=== PATIENT | female | born 1970 | race Caucasian/White ===

== ENCOUNTER → 2018-09-17 11:01 | Outpatient (CLI) | payer OTHER, SELFPAY ==
--- NOTE | 2018-09-17 | DI.MRI.S_ITS ---
PROCEDURE: MR SHOULDER RT W CON INDICATIONS: PAIN IN RIGHT SHOULDER TECHNIQUE: After the administration of 12 mL of dilute intra-articular Gadolinium contrast, oblique coronal T1 and T2 spin echo with fat saturation, oblique sagittal T1 spin echo with and without fat saturation, oblique sagittal T2 fast spin echo with fat saturation, axial T1 spin echo with fat saturation through the shoulder. COMPARISON: None. FINDINGS: Image quality: Excellent. Rotator cuff: There is low-grade bursal surface partial-thickness tear involving distal supraspinatus and infraspinatus at their insertions on the humeral head extending to musculotendinous junction. Subscapularis tendon is intact. No rotator cuff muscle atrophy on sagittal images. Bones and bursae: No bone marrow contusions or fractures. Mild to moderate acromioclavicular joint osteoarthritic changes are seen with marginal osteophyte formation compressing on musculotendinous junction of supraspinatus. 1.8 x 1.8 x 3.8 cm lobulated cystic structure with internal septation is noted along the posterior aspect of scapular and deep to the supraspinatus muscle and is adjacent to the posterior superior labrum. Capsule and soft tissues: There is suggestion of focal posterior superior labral tear at 10 to 12:00 position. Anterior labrum is intact. The glenohumeral ligaments appear intact. The long head of the biceps tendon demonstrates normal location and morphology. The rotator interval appears normal, without fibrosis. The coracohumeral ligament is of normal thickness. No intra-articular bodies. IMPRESSION: 1. Suggestion of posterior superior labral tear at 10 to 12:00 position. Possible septated para labral cyst adjacent to posterior superior labrum as described above. 2. Tendinosis and low-grade bursal surface partial-thickness tear involving distal supraspinatus and infraspinatus extending to musculotendinous junction. 3. Mild to moderate acromioclavicular joint osteoarthritis. Dictated by: Isaiah Juarez M.D. on 09/17/2018 at 13:28 Approved by: Isaiah Juarez M.D. on 09/17/2018 at 13:43
--- NOTE | 2018-09-17 | DI.RAD.S_ITS ---
PROCEDURE: FL SHOULDER INJECTION MR/CT RT INDICATIONS: PAIN IN RIGHT SHOULDER TECHNIQUE: A fluoroscopically guided right shoulder joint injection with gadolinium based contrast in preparation for an MR Arthrogram was performed by Dr. Hobson. The procedure was explained to the patient, including the alternatives, risks and benefits. Written informed consent was obtained. The patient was then placed in the supine position on the fluoroscopy table and the right upper extremity was externally rotated and secured in place. The shoulder was examined fluoroscopically and a site for needle placement chosen for entry into the glenohumeral joint along the upper-inner aspect of the humeral head, from an anterior approach. The right shoulder was then prepped and draped in the usual sterile fashion. The skin overlying this region and underlying soft tissues were anesthetized using 1% lidocaine. A 22-gauge spinal needle was then inserted under fluoroscopic observation into the glenohumeral joint. Additional Lidocaine was injected to anesthetize the periosteum of the humeral head. A small amount of Isovue contrast was injected to confirm proper placement within the joint space. Then, approximately 12 mL of a dilute solution of gadolinium based contrast (1:200) was injected into the glenohumeral joint under fluoroscopic observation. The needle was removed and hemostasis was obtained. A bandage was applied. The patient tolerated the procedure well, without immediate complications. The patient was then sent to MRI for further imaging. FINDINGS: Multiple fluoroscopically stored images of the right shoulder demonstrate the injected contrast to be contained within the glenohumeral joint without extension into the subacromial-subdeltoid bursa. IMPRESSION: Well tolerated fluoroscopically guided injection of the right glenohumeral joint with gadolinium based contrast in preparation for an MR arthrogram. Dictated by: Vince Hobson M.D. on 09/17/2018 at 13:02 Approved by: Vince Hobson M.D. on 09/17/2018 at 13:03
== END ==
PROVIDERS: PCP Physician Assistant; Visit Provider Physician Assistant
DX: M25.511 Pain in right shoulder (principal); M75.111 Incomplete rotator cuff tear or rupture of right shoulder, not specified as traumatic; M19.011 Primary osteoarthritis, right shoulder
CPT/HCPCS: 23350; 73222; 77002

== ENCOUNTER 2019-08-03 18:06 | Emergency (ER) | payer OTHER, SELFPAY ==
[2019-08-03 18:10] VITALS: BP 204/109; PULSE 86; RESP 14; TEMP 36.7; O2SAT 100; BMI 25.2
--- NOTE | 2019-08-03 18:18 | DI.RAD.S_ITS ---
PROCEDURE: XR HAND LT MIN 3V INDICATIONS: dog bite left thumb TECHNIQUE: 3 views of the hand(s) acquired. COMPARISON: None. FINDINGS: Bones: No fractures or dislocations. Carpal bones are normally aligned. No suspicious bony lesions. Soft tissues: No suspicious soft tissue calcifications. Subcutaneous defect as well as swelling at the base of the thumb. No radiopaque foreign body. IMPRESSION: No bony injury. No radiopaque soft tissue foreign body. Dictated by: Mimi Olmstead M.D. on 08/03/2019 at 18:43 Approved by: Mimi Olmstead M.D. on 08/03/2019 at 18:45
--- NOTE | 2019-08-03 18:48 | ED_ITS ---
HPI - Animal Bite General Chief Complaint: Animal Bite Stated Complaint: DOG BITE LEFT HAND Time Seen by Provider: 08/03/19 18:12 Source: patient Mode of arrival: Ambulatory Limitations: no limitations History of Present Illness HPI narrative: 49-year-old female nonsmoker with noncontributory medical history presents with her friend and a chief complaint of a dog bite on the dorsum of her left thumb. The dog is owned by her friend and has shots up-to-date and had been acting appropriate. It is unclear exactly what caused her to nip at the patient's hand but it is thought to have been a playful action. The patient's tetanus is not up-to-date and will be given today. Patient has minimal bleeding and painful but full range of motion of the thumb. She is otherwise well and free of complaint MD complaint: animal bite Onset (ago): hour(s) Animal: dog Description of animal: household pet Mechanism: bite Location - Extremities: Left: hand Pain description: sharp Context: playing with animal Associated symptoms: none Treatments prior to arrival: wound dressing(s) Related Data Patient tetanus UTD: No Previous Rx's Medication Instructions Recorded hydrocodone-acetaminophen [[place]] 1 - 2 tab PO Q6HP PRN #15 tab 11/19/16 doxycycline hyclate 100 mg PO BID #20 tab 08/03/19 metronidazole [Flagyl] 500 mg PO Q8H 7 Days #21 tab 08/03/19 Allergies Allergy/AdvReac Type Severity Reaction Status Date / Time amoxicillin [From AUGMENTIN] Allergy Unknown Verified 08/03/19 18:15 clavulanic acid Allergy Unknown Verified 08/03/19 18:15 [From AUGMENTIN] Review of Systems Constitutional Constitutional: Denies chills, Denies fatigue, Denies fever(s), Denies frequent falls, Denies lethargy and Denies weakness Eyes Eyes: Denies change in vision, Denies eye discharge, Denies irritation and Denies loss of vision ENT Ears, Nose, Mouth, and Throat: Denies change in voice, Denies dizziness, Denies neck pain, Denies sore throat and Denies throat swelling Cardiovascular Cardiovascular: Denies chest pain, Denies irregular heart rhythm, Denies lightheadedness, Denies palpitations, Denies dyspnea, Denies dyspnea on exertion and Denies orthopnea Respiratory Respiratory: Denies cough, Denies dyspnea, Denies dyspnea on exertion and Denies wheezing Gastrointestinal Gastrointestinal: Denies abdominal pain, Denies change in bowel habits, Denies diarrhea, Denies nausea and Denies vomiting Genitourinary Genitourinary: Denies hematuria, Denies flank pain, Denies urinary incontinence and Denies urinary urgency Musculoskeletal Musculoskeletal: Denies back pain, Denies muscle weakness, Denies neck pain, Denies numbness and Denies tingling Integumentary/Breasts Skin/Breast: Denies pruritus, Denies erythema, Denies rash and Reports wounds Neurologic Neurologic: Denies behavioral changes, Denies confusion, Denies dizziness, Denies frequent falls, Denies loss of vision, Denies numbness, Denies tingling and Denies weakness Psychiatric Psychiatric: Denies anxiety, Denies behavioral changes, Denies confusion, Denies depression, Denies homicidal ideation and Denies suicidal ideation Endocrine Endocrine: Denies fatigue, Denies flushing and Denies palpitations Hematologic/Lymphatic Hematologic/Lymphatic: Denies easy bruising Allergic/Immunologic Allergic/Immunologic: Denies urticaria, Denies throat swelling and Denies wheezing Patient History Social History Smoking Status: Unknown if ever smoked Smoking Status: Unknown if ever smoked alcohol intake frequency: holidays/special occasions only Substance Use Type: does not use Exam Narrative Exam Narrative: GEN: AOx3 and in mild distress EYES: Pupils are equal, round, and reactive to light and accommodation. Extraoccular muscles are intact bilaterally. There is no subconjunctival hemorrhage or exudate. CHEST: Lungs are clear to auscultation bilaterally and free of wheezes, rales, or rhonchi. Heart rate is regular rhythm, there are no murmurs, clicks, rubs, or gallops. There is no chest wall tenderness. ABD: Abdomen is soft and nontender. There is no guarding or rebound. Bowel sounds are normal in all 4 quadrants. There is no mass or organomegaly. EXT: Full but painful range of motion of left thumb. There is a 1.5 cm gaping laceration on dorsum of left thumb with minimal active bleeding. Able to visualize in a bloodless field and no involvement of bone or tendon noted. A 2nd superficial laceration on the volar surface of thumb also noted, again expl ored and no tendon or bone involvement noted SKIN: Warm, pink, and dry. No erythema or rash Initial Vital Signs Initial Vital Signs: Vital Signs Temperature 98.1 F 08/03/19 18:10 Pulse Rate 86 08/03/19 18:10 Respiratory Rate 14 08/03/19 18:10 Blood Pressure 204/109 H 08/03/19 18:10 Pulse Oximetry 100 08/03/19 18:10 Procedures Laceration Repair Laceration 1: Site: hand Side (If applicable): left Size (cm): 1.5 Description: flap and irregular Depth: simple, single layer Local Anesthetic: lidocaine 1% and with bicarb Amount of anesthesia used (mL): 4 Pre-repair: wound explored, irrigated extensively and deep structures intact Skin layer closed with: nylon Size (cm): 5-0 Number of sutures: 4 Technique: simple, interrupted Course Orders Ordered: ED Orders 08/03/19 18:18 XR hand LT min 3V Stat Discontinued Medications Diphtheria/Tetanus/Acell Pertussis (Adacel) 0.5 ml IM .ONCE ONE Stop: 08/03/19 18:49 Last Admin: 08/03/19 19:11 Dose: 0.5 ml Documented by: BRUCE Lidocaine/Sodium Bicarbonate (Buffered Lidocaine 10 Ml Syr) 10 ml INJ NOW ONE Stop: 08/03/19 19:14 Last Admin: 08/03/19 19:18 Dose: 10 ml Documented by: BRUCE Vital Signs Vital signs: Vital Signs - 8 hr 08/03/19 18:10 08/03/19 19:55 Temperature 98.1 F Pulse Rate 86 78 Respiratory Rate 14 16 Blood Pressure 204/109 H 161/83 H Pulse Oximetry 100 98 MDM - Animal Bite Imaging Data Extremity x-ray #1: Attestation: I personally reviewed and interpreted this imaging study as follows: My Impression: No Fx or FB Radiologist's Impression: [address] [address] XRay Report Signed Patient: Torie Tamayo LMR#: [id number] : 1970Acct:[id number] Age/Sex: 49 / FDate of Service: 08/03/19 Loc: ED Accession Number: [id number] Procedure: XR hand LT min 3V Ordering Provider: Franco Benson D.O. PROCEDURE: XR HAND LT MIN 3V INDICATIONS: dog bite left thumb TECHNIQUE: 3 views of the hand(s) acquired. COMPARISON: None. FINDINGS: Bones: No fractures or dislocations. Carpal bones are normally aligned. No suspicious bony lesions. Soft tissues: No suspicious soft tissue calcifications. Subcutaneous defect as well as swelling at the base of the thumb. No radiopaque foreign body. IMPRESSION: No bony injury. No radiopaque soft tissue foreign body. Dictated by: Mimi Olmstead M.D. on 08/03/2019 at 18:43 Approved by: Mimi Olmstead M.D. on 08/03/2019 at 18:45 Discharge Plan Departure Patient Disposition: Home Clinical Impression: Dog bite Qualifiers: Encounter type: initial encounter Qualified Code(s): W54.0XXA - Bitten by dog, initial encounter Discharge Date/Time: 08/03/19 20:04 Instructions: DI for Dog Bite Activity Restrictions/Additional Instructions: *You have been diagnosed with [dog bite requiring sutures] *What to do: *Take medications as directed *Follow up with your primary care provider in 2-3 days, call for an appointment. Let them know you were seen in the Emergency Department and that we ask that you be seen in follow up *Return to ER if you should have any new, worsening or concerning symptoms Please keep the wound clean and dry to the best of your ability. Please monitor for signs of infection such as redness to the skin or increasing pain. Have the sutures removed by your doctor in about 7 days. If you are unable to get into your doctor, we would be happy to remove the sutures in that same timeframe. Prescriptions: New doxycycline hyclate 100 mg tablet 100 mg PO BID Qty: 20 RF: 0 metronidazole [Flagyl] 500 mg tablet 500 mg PO Q8H 7 Days Qty: 21 RF: 0 No Action hydrocodone-acetaminophen [[place]] 5 MG/325 MG tablet 1 - 2 tab PO Q6HP PRNQty: 15 RF: 0 Referrals: Jose Alberto Barrett PA-C [Primary Care Provider] -
[2019-08-03] MEDS: TET,DIPH,PERTUSS(ACELL),VAC/PF 0.5 ML SYRINGE IM (19:11)
[2019-08-03] MEDS: LIDO 1%/SOD BICARB 8.4% (10ML) 10 ML SYRINGE INJ (19:18)
[2019-08-03 19:55] VITALS: BP 161/83; PULSE 78; RESP 16; O2SAT 98
== END 2019-08-03 20:04 | disposition home or self-care (01) ==
PROVIDERS: Emergency Provider Emergency Medicine; PCP Physician Assistant
DX: S61.052A Open bite of left thumb without damage to nail, initial encounter (principal); W54.0XXA Bitten by dog, initial encounter; Z23 Encounter for immunization
CPT/HCPCS: 12001; 73130; 90471; 99283; 99284; 90715

== ENCOUNTER → 2019-12-12 09:04 | Outpatient (CLI) | payer OTHER, SELFPAY ==
[2019-12-13 13:22] LABS: COVID19 Sendout Not Detected (Not Detect)
== END ==
PROVIDERS: PCP Physician Assistant; Visit Provider Nurse Practitioner
DX: Z11.59 Encounter for screening for other viral diseases (principal)
CPT/HCPCS: 87635

== ENCOUNTER 2019-12-15 08:55 | Day surgery (SDC) | payer OTHER, SELFPAY ==
--- NOTE | 2019-12-15 | PATH_ITS ---
[facility] Accession Number: [id number] . 01 Material submitted: . rectum - PROXIMAL RECTAL MASS . 01 Clinical history: . DX COLONOSCOPY . 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 Please see comment. MRV 12/17/2019 1137 Local . 02 Comment: As part of routine lead quality technician, Dr. Mahan also reviewed this case and agrees with the diagnosis. Dr. Wilburn gave preliminary results to Curt in Dr. Lama's office at 10:30 a.m. on 12/17/2019. Mismatch repair IHC will be performed and the results reported as an addendum. . 02 Electronically signed: . Nikky Wilburn MD, Pathologist NPI- [id number] . 01 Gross description: . Received in formalin, labeled proximal rectal mass, and consists of multiple casanova-pink fragments of soft tissue measuring 0.5 x 0.4 x 0.2 cm in aggregate. The specimen is entirely submitted in cassette A1. ([id number]) /[facility] 12/16/2019 1255 Local . 02 Pathologist provided ICD-10: C20 . 02 CPT . 358472 Performed at: 01 [facility] [address], [place], [place] [id number] MD Shahzad Calzada MD Phone: [phone] Performed at: 02 [facility] [address] [place], [place] [id number] MD Nikky Wilburn MD Phone: [phone]
[2019-12-15 09:19] VITALS: BP 129/82; PULSE 66; RESP 20; TEMP 36.1; O2SAT 99; BMI 26.4
--- NOTE | 2019-12-15 11:06 | P.HP_ITS ---
History of Present Illness History of Present Illness Chief complaint: DX COLONOSCOPY Patient History Family & Social History Social History: household members spouse Tobacco & Substance use: Smoking Status Never smoker alcohol intake never alcohol intake frequency holiday/special occasion Substance Use Type does not use Meds Home Medications and Allergies Home Medications Medication Instructions Recorded Confirmed Type gabapentin 300 mg PO DAILY 12/15/19 12/15/19 History hydrochlorothiazide 25 mg PO DAILY 12/15/19 12/15/19 History Allergies Allergy/AdvReac Type Severity Reaction Status Date / Time amoxicillin [From AUGMENTIN] Allergy Unknown Verified 12/15/19 09:18 clavulanic acid Allergy Unknown Verified 12/15/19 09:18 [From AUGMENTIN] lisinopril Allergy Verified 12/15/19 09:18 Review of Systems Review of Systems ROS: Yes All systems reviewed with the patient and are negative except as other boss documented Exam Vital Signs (past 8 hours): - 12/15/19 09:19 Temperature 97 F L Pulse Rate 66 Respiratory Rate 20 Blood Pressure 129/82 Pulse Oximetry 99 Oxygen Delivery Method Room Air Narrative Exam Narrative: Awake alert and oriented x3, no acute distress, lungs clear, heart regular rhythm, no edema Assessment & Plan Assessment & Plan narrative: Colonoscopy for screening purposes COVID-19 COVID-19 status: Negative
[2019-12-15] MEDS: fentaNYL 250 MCG/5 ML INJ IV (11:29)
[2019-12-15] MEDS: MIDAZOLAM 5 MG/5 ML VIAL IV (11:33)
--- NOTE | 2019-12-15 11:41 | PM.OP.ENDO ---
Operative Date/Time/Diagnoses Date of procedure: 12/15/19 Procedure & Clinicians Study performed: Colonoscopy with biopsy Moderate conscious sedation was administered by the endoscopy nurse and supervised by the endoscopist. The following parameters were monitored: Oxygen saturation, heart rate, blood pressure, and response to care. 9 mg midazolam and 150 mcg fentanyl given. Same procedure as scheduled: Yes Indications: Colon cancer screening. Last colonoscopy was over 20 years ago. Maternal grandparent history of colon cancer. History of constipation Procedure Notes Procedure in detail: Prior to the procedure, history and physical was performed, and patient medications and allergies were reviewed. Preprocedure nursing history and assessment was reviewed. Patient identification and proposed procedure were verified by the physician and nurse in the procedure room. The physical status of the patient was reassessed after the procedure. After informed consent was obtained including risks, benefits, and alternatives, the scope was passed under direct vision. Throughout the procedure, the patient's blood pressure, pulse, and oxygen saturations were monitored continuously. The colonoscope was introduced through the anus and advanced to the cecum as identified by the appendiceal orifice and ileocecal valve. The patient tolerated the procedure poorly due to discomfort. Bowel prep was deemed adequate to detect polyps greater than 5 mm. The perianal and digital rectal examinations were unremarkable aside from grade 2 internal hemorrhoids. A 3 cm (wide) x 5 cm (long) fungating mass was noted in the proximal rectum. This occupied 2/3 of the circumference of the lumen and was partially obstructing. The distal border of the mass was located 8 cm from the anal verge. Biopsies were taken A large amount of liquid and solid stool was noted throughout the distal colon. This could not be lavaged completely. Visualization was poor. Due to the patient's discomfort which was not responding to sedatives and poor bowel prep, the colonoscopy was aborted Impression: Large proximal rectal mass biopsied Internal hemorrhoids Poor bowel prep inpatient discomfort not responsive to sedatives Aborted colonoscopy Sedation minutes: 19 Complications: other (EBL minimal. No complications) Post-procedure Plan for aftercare: Repeat colonoscopy at the next available appointment. Arrange an extended bowel prep. Utilize monitored anesthesia care for sedation. Follow-up biopsy results Referral to a colorectal surgeon Patient has a contact number available for emergencies. The signs and symptoms of potential delayed complications were discussed with the patient. Return to normal activities tomorrow. Written discharge instructions were provided to the patient. Discharge home with escort
[2019-12-15 11:46] VITALS: BP 143/84; PULSE 72; RESP 17; TEMP 36.4; O2SAT 17
[2019-12-15 11:51] VITALS: BP 148/86; PULSE 72; RESP 13; TEMP 35.8; O2SAT 98
[2019-12-15 11:56] VITALS: BP 139/88; PULSE 75; RESP 15; TEMP 36; O2SAT 100
[2019-12-15 12:05] VITALS: BP 133/80; PULSE 78; RESP 20; TEMP 36.1; O2SAT 100
--- NOTE | 2019-12-15 12:23 | SUR.PHASEI ---
Phase 1 done by Em Adames RN, not Jia Reynoso RN
[2019-12-15 12:50] VITALS: BP 152/86; PULSE 75; RESP 16; TEMP 36.6; O2SAT 99
== END 2019-12-15 13:00 | disposition home or self-care (01) ==
PROVIDERS: Visit Provider Internal Medicine
PROC: 0DJD8ZZ Inspection of Lower Intestinal Tract, Via Natural or Artificial Opening Endoscopic (ICD-10-PCS; CPT 45378; principal; 2019-12-15 10:00)
DX: Z12.11 Encounter for screening for malignant neoplasm of colon (principal); K64.1 Second degree hemorrhoids; Z53.8 Procedure and treatment not carried out for other reasons; K91.840 Postprocedural hemorrhage of a digestive system organ or structure following a digestive system procedure; C20 Malignant neoplasm of rectum
CPT/HCPCS: 45380; 36415; 74177; 80053; 85025; 85610; 85730; 86850; 86900; 86901; 99284; J2250; J3010

== ENCOUNTER 2019-12-15 19:34 | Emergency (ER) | payer OTHER, SELFPAY ==
[2019-12-15 19:37] VITALS: BP 182/82; PULSE 80; RESP 20; TEMP 36.6; O2SAT 99
[2019-12-15 20:07] LABS: Add Manual Diff / Slide Review NO; Basophils Absolute Auto 0 /uL (0-100); Basophils Percent Auto 0.7 % (0-2); Eosinophils Absolute Auto 200 /uL (0-450); Eosinophils Percent Auto 3.9 % (2-4); Hematocrit 38.1 % (36-46); Lymphocytes Absolute Auto 2700 /uL (1100-4500); Lymphocytes Percent Auto 47.1 % (25-40); Mean Corpuscular HGB Conc 34.3 % (30-36); Mean Corpuscular Hemoglobin 29.7 PG (26-34); Mean Corpuscular Volume 86.6 fL (80-100); Monocytes Absolute Auto 400 /uL (0-900); Neutrophils Absolute Auto 2400 /uL (1500-7000); Neutrophils Percent Auto 41.3 % (50-75); Platelet Count 284 X10^3/uL (150-400); Red Blood Cell Count 4.39 X10^6/uL (4.0-5.2); White Blood Cell Count 5.7 X10^3/uL (4.5-11.0)
[2019-12-15 20:12] LABS: INR 0.9 (0.9-1.3); Prothrombin Time 10.7 SECONDS (10.1-12.7)
[2019-12-15 20:15] LABS: PTT Partial Thromboplastin Tim 33 SECONDS (26.4-36.2)
[2019-12-15 20:16] LABS: Alanine Aminotransferase 17 IU/L (<35); Albumin 3.9 g/dL (3.5-5.0); Albumin Globulin Ratio 1.2 (1.0-2.8); Alkaline Phosphatase 79 U/L (38-126); Aspartate Aminotransferase 28 IU/L (14-36); BUN Creatinine Ratio 11.3 (6-22); Bilirubin Total 0.6 mg/dL (0.2-1.3); Blood Urea Nitrogen 7 mg/dL (7-17); Calcium 8.5 mg/dL (8.4-10.2); Carbon Dioxide 27 mmol/L (22-32); Chloride 101 mmol/L (98-107); Estimated Glomerular Filt Rate > 60.0 mL/min (>60); Globulin 3.2 g/dL (1.7-4.1); Glucose 106 mg/dL (70-100); HEMOLYSIS < 15 (0-50); Potassium 3.2 mmol/L (3.4-5.1); Sodium 137 mmol/L (137-145); Total Protein 7.1 g/dL (6.3-8.2)
--- NOTE | 2019-12-15 20:20 | ED_ITS ---
HPI - General Adult General Chief complaint: Abdominal Pain Stated complaint: abd pains s/p colonoscopy earlier today Time Seen by Provider: 12/15/19 20:08 Source: patient Mode of arrival: Ambulatory Limitations: no limitations History of Present Illness HPI narrative: 49-year-old female who underwent a colonoscopy earlier today and was found to have a mass in the proximal rectum. A review of the note shows that there was difficulty with the procedure stating that there was quite a bit of liquid informed stool above level of the mass. A colonoscopy was aborted without being completed secondary to the discomfort of the patient. There was a biopsy taken of the mass. Patient was discharged home. Patient states that since being discharged home she has had rectal bleeding to include clots and bright red blood. Also has left-sided and suprapubic abdominal tenderness. No fevers. No vomiting. No urinary symptoms. Came into the emergency department because of the bleeding. Related Data Home Medications Medication Instructions Recorded Confirmed fluoxetine 10 mg PO DAILY 12/15/19 12/15/19 gabapentin 300 mg PO DAILY 12/15/19 12/15/19 hydrochlorothiazide 12.5 mg PO QAM 12/15/19 12/15/19 Allergies Allergy/AdvReac Type Severity Reaction Status Date / Time amoxicillin [From AUGMENTIN] Allergy Unknown Verified 12/15/19 09:18 clavulanic acid Allergy Unknown Verified 12/15/19 09:18 [From AUGMENTIN] lisinopril Allergy Verified 12/15/19 09:18 Review of Systems Constitutional Constitutional: Denies fever(s) Cardiovascular Cardiovascular: Denies chest pain and Denies dyspnea Respiratory Respiratory: Denies dyspnea Gastrointestinal Gastrointestinal: Reports abdominal pain, Denies melena, Denies nausea and Denies vomiting Genitourinary Genitourinary: Denies dysuria Genitourinary: Denies dysuria Integumentary/Breasts Skin/Breast: Denies lesions and Denies rash Neurologic Neurologic: Denies behavioral changes Psychiatric Psychiatric: Denies anxiety and Denies behavioral changes Hematologic/Lymphatic Hematologic/Lymphatic: Denies easy bleeding and Denies easy bruising Patient History Medical History Foot contusion (Inactive) Social History household members: spouse Smoking Status: Never smoker alcohol intake: never Smoking Status: Never smoker alcohol intake frequency: holidays/special occasions only Substance Use Type: does not use Exam Initial Vital Signs Initial Vital Signs: Vital Signs Temperature 97.9 F 12/15/19 19:37 Pulse Rate 80 12/15/19 19:37 Respiratory Rate 20 12/15/19 19:37 Blood Pressure 182/82 H 12/15/19 19:37 Pulse Oximetry 99 12/15/19 19:37 Const General: cooperative and comfortable Limitations: mental status not altered HENMO Head: normal to inspection and normocephalic Resp Effort & Inspection: normal respiratory effort Auscultation: clear to auscultation bilaterally Cardio Rate: regular rate Rhythm: regular rhythm GI Inspection: non-distended Palpation: soft and tender (Left lower quadrant) Skin Lesions: no lesions Rashes: no rashes Neuro General: patient alert and patient awake Cognition: normal cognition Speech: speech normal Extrem General: normal to inspection and capillary refill normal Psych Appearance: grossly normal and well kempt Course Orders Ordered: ED Orders 12/15/19 19:50 Complete Blood Count AUTO DIFF Stat Comprehensive Metabolic Panel Stat Partial Thromboplastin Time Stat Prothrombin Time INR Stat Type and Screen Stat 12/15/19 19:56 EKG-12 Lead Stat 12/15/19 20:21 CT abdomen pelvis w con Stat Discontinued Medications Sodium Chloride (Normal Saline 0.9%) 1,000 mls @ 1,000 mls/hr IV BOLUS ONE Stop: 12/15/19 21:19 Last Infusion: 12/15/19 21:52 Dose: 0 mls/hr Documented by: Admin: 12/15/19 20:55 Dose: 1,000 mls/hr Documented by: JHONATAN Vital Signs Vital signs: Vital Signs - 8 hr 12/15/19 21:00 12/15/19 21:53 Pulse Rate 68 77 Respiratory Rate 20 20 Blood Pressure 145/78 H 165/90 H Pulse Oximetry 99 99 Medical Decision Making Medical Records Medical records reviewed: Yes I reviewed the patient's medical records. Lab Data Lab results reviewed: Yes I reviewed the patient's lab results. Result diagrams: 12/15/19 19:50 12/15/19 19:50 Labs: Lab Results 12/15/19 12/15/19 12/15/19 Range/Units 19:50 19:50 19:50 WBC 5.7 (4.5-11.0) X10^3/uL RBC 4.39 (4.0-5.2) X10^6/uL Hgb 13.0 (12.0-16.0) g/dL Hct 38.1 (36-46) % MCV 86.6 (80-100) fL MCH 29.7 (26-34) PG MCHC 34.3 (30-36) % RDW 13.0 (11.6-14.8) % Plt Count 284 (150-400) X10^3/uL Neut % (Auto) 41.3 L (50-75) % Lymph % (Auto) 47.1 H (25-40) % [place] % (Auto) 7.0 (3-14) % Eos % (Auto) 3.9 (2-4) % Baso % (Auto) 0.7 (0-2) % Neut # (Auto) 2400 (8322-3860) /uL Lymph # (Auto) 2700 (0113-5719) /uL [place] # (Auto) 400 (0-900) /uL Eos # (Auto) 200 (0-450) /uL Baso # (Auto) 0 (0-100) /uL PT 10.7 (10.1-12.7) SECONDS INR 0.9 (0.9-1.3) APTT 33 (26.4-36.2) SECONDS Sodium 137 (137-145) mmol/L Potassium 3.2 L (3.4-5.1) mmol/L Chloride 101 (98-107) mmol/L Carbon Dioxide 27 (22-32) mmol/L BUN 7 (7-17) mg/dL Creatinine 0.62 (0.52-1.04) mg/dL Estimated GFR > 60.0 (>60) mL/min BUN/Creatinine Ratio 11.3 (6-22) Glucose 106 H (70-100) mg/dL Calcium 8.5 (8.4-10.2) mg/dL Total Bilirubin 0.6 (0.2-1.3) mg/dL AST 28 (14-36) IU/L ALT 17 (<35) IU/L Alkaline Phosphatase 79 (38-126) U/L Total Protein 7.1 (6.3-8.2) g/dL Albumin 3.9 (3.5-5.0) g/dL Globulin 3.2 (1.7-4.1) g/dL Albumin/Globulin Ratio 1.2 (1.0-2.8) Blood Type Antibody Screen 12/15/19 Range/Units 19:50 WBC (4.5-11.0) X10^3/uL RBC (4.0-5.2) X10^6/uL Hgb (12.0-16.0) g/dL Hct (36-46) % MCV (80-100) fL MCH (26-34) PG MCHC (30-36) % RDW (11.6-14.8) % Plt Count (150-400) X10^3/uL Neut % (Auto) (50-75) % Lymph % (Auto) (25-40) % [place] % (Auto) (3-14) % Eos % (Auto) (2-4) % Baso % (Auto) (0-2) % Neut # (Auto) (2610-7517) /uL Lymph # (Auto) (4324-6703) /uL [place] # (Auto) (0-900) /uL Eos # (Auto) (0-450) /uL Baso # (Auto) (0-100) /uL PT (10.1-12.7) SECONDS INR (0.9-1.3) APTT (26.4-36.2) SECONDS Sodium (137-145) mmol/L Potassium (3.4-5.1) mmol/L Chloride (98-107) mmol/L Carbon Dioxide (22-32) mmol/L BUN (7-17) mg/dL Creatinine (0.52-1.04) mg/dL Estimated GFR (>60) mL/min BUN/Creatinine Ratio (6-22) Glucose (70-100) mg/dL Calcium (8.4-10.2) mg/dL Total Bilirubin (0.2-1.3) mg/dL AST (14-36) IU/L ALT (<35) IU/L Alkaline Phosphatase (38-126) U/L Total Protein (6.3-8.2) g/dL Albumin (3.5-5.0) g/dL Globulin (1.7-4.1) g/dL Albumin/Globulin Ratio (1.0-2.8) Blood Type O Positive Antibody Screen Negative Imaging Data CT scan - abdomen/pelvis: Radiologist's Impression: [address] [address] [address] Scan Report Signed Patient: Torie Tamayo LMR#: [id number] : 1970Acct:[id number] Age/Sex: 49 / FDate of Service: 12/15/19 Loc: ED Accession Number: [id number] Procedure: CT abdomen pelvis w con Ordering Provider: Jose Alberto Carrizales D.O. PROCEDURE: CT ABDOMEN PELVIS W CON INDICATIONS: Colonoscopy today, bleeding, pain, distention, eval for perf TECHNIQUE: After the administration of intravenous contrast, 5 mm thick sections acquired from the diaphragm to the symphysis. 5 mm coronal and sagittal reformats were acquired. For radiation dose reduction, the following was used: automated exposure control, a djustment of mA and/or kV according to patient size. COMPARISON: None. FINDINGS: Image quality: Excellent. ABDOMEN: Lung bases: Lung bases are clear. Heart size is normal. Bilateral breast implants. Solid organs: Liver is normal in size . Several well-circumscribed hepatic hypodensities which are consistent with benign cysts. Gallbladder is unremarkable. Biliary system is non dilated. Pancreas enhances normally. Spleen is normal in size and enhancement. No adrenal nodules. Kidneys demonstrate normal size and enhancement, without hydronephrosis. Peritoneum and bowel: Apparent thickening of the rectum, (4/44). Minimal stranding in the mesorectal fat. Small mesorectal lymph nodes. No colonic perforation identified. No pneumoperitoneum. No portal venous gas. No pneumatosis intestinalis. No significant free fluid. No small bowel obstruction. Normal appendix. Nodes and vessels: No retroperitoneal or mesenteric adenopathy by size criteria. Aorta and inferior vena cava are normal in size. Miscellaneous: No significant ventral hernias. PELVIS: Genitourinary: Bladder wall thickness is normal. Unremarkable uterus. Probable trace fluid at the right adnexa. Miscellaneous: No inguinal hernias or adenopathy. Bones: No suspicious bony lesions. Bilateral L5 pars defect. Lumbar spine disc bulges. No vertebral body compression fractures. IMPRESSION: 1. Thickening and inflammatory change surrounding the rectum is concerning for proctitis. Small mesorectal lymph nodes. Rectal cancer is difficult to exclude. -correlate with recent colonoscopy. -if clinically indicated follow-up MRI of the rectum could be performed. 2. No colonic perforation identified. No pneumoperitoneum. 3. Question of trace fluid adjacent to the right adnexa. Dictated by: Addy Ramos M.D. on 12/15/2019 at 20:38 Approved by: Addy Ramos M.D. on 12/15/2019 at 20:48 MDM Narrative Medical decision making narrative: Informed patient that the symptoms that she is currently having could very well be normal after the procedure that she had earlier today. Informed her that a biopsy could cause the bleeding that she is having. We did discuss that there is also potential complications from colonoscopy to include: Perforations. We discussed the risks and benefits of obtaining a CT scan for further evaluation verses being discharged home with strict return precautions. After this discussion the patient opted to have the CT scan performed. It subsequently showed no acute pathology. I feel that the patient can be discharged home safely with return precautions and follow-up with the operative provider and also to follow the postoperative instructions given to her by the operative provider. Patient expressed understanding and agreement. Discharge Plan Departure Patient Disposition: Home Clinical Impression: Postoperative complication Qualifiers: Surgical complication system/body Area: [id number] Encounter type: initial encounter Discharge Date/Time: 12/15/19 21:53 Activity Restrictions/Additional Instructions: Continue all of the postoperative instructions given to you by the provider. Keep all of your scheduled medical appointments. Return to the emergency de partment for any new or worsening symptoms Prescriptions: No Action fluoxetine 10 mg capsule 10 mg PO DAILY RF: 0 hydrochlorothiazide 12.5 mg tablet 12.5 mg PO QAM RF: 0 gabapentin 300 mg Capsule 300 mg PO DAILY RF: 0
[2019-12-15] MEDS: SODIUM CHLORIDE 0.9% 1,000 ML 1000 ML IV (20:55)
[2019-12-15 21:00] VITALS: BP 145/78; PULSE 68; RESP 20; O2SAT 99
[2019-12-15 21:53] VITALS: BP 165/90; PULSE 77; RESP 20; O2SAT 99
== END 2019-12-15 21:53 | disposition home or self-care (01) ==
PROVIDERS: Emergency Provider Emergency Medicine
DX: T81.9XXA Unspecified complication of procedure, initial encounter (principal)
CPT/HCPCS: 36415; 74177; 80053; 85025; 85610; 85730; 86850; 86900; 86901

== ENCOUNTER → 2019-12-21 07:31 | Outpatient (CLI) | payer OTHER, SELFPAY ==
--- NOTE | 2019-12-21 | DI.MRI.S_ITS ---
PROCEDURE: MR PELIS WO/W CON INDICATIONS: Malignant neoplasm of rectum TECHNIQUE: Coronal HASTE, sagittal T2 FSE, axial T1 FSE, axial and coronal nonbreath-hold T2 FSE. Axial dynamic VIBE during administration of contrast. Post-contrast axial and coronal VIBE/2-D FLASH with fat saturation from the iliac crests to the symphysis. Optional diffusion weighted imaging and ADC may be performed. COMPARISON: None. FINDINGS: Image quality: Excellent. Rectum: Morphology: Semi circumferential Clock face of tumor involvement: 12-9 o'clock Mucinous (high T2 signal): No Craniocaudal length: Roughly 5.4 cm Distance to anal verge: 9 cm Distance to top of sphincter complex/anorectal junction: 7 cm Relationship to anterior peritoneal reflection: Straddles, but mainly above Tumor at or below puborectalis sling: No T staging: T2, tumor invades the muscularis propria. Depth of extramural invasion: No definite areas of extramural invasion. Extramural vascular invasion: No definite, although there is a vessel near the 9 o'clock position which comes in close proximity to the rectal serosa.. Pelvic organ involvement: None Regional lymph nodes (mesorectal, inguinal, iliac): Numerous suspicious small, round, T2 hyperintense lymph nodes in the perirectal fat and in the superior hemorrhoidal perivascular region as high as the S1-2 level. 1 of the largest measures 6 mm. Other pelvic soft tissues: The urinary bladder is decompressed. The uterus appears normal. Ovarian tissue is not seen. No pathologic free pelvic fluid. More proximal colon and small bowel loops are normal in caliber. Bones: Marrow is normal in overall signal. IMPRESSION: 1. T2 high rectal tumor. 2. Several suspicious perirectal and presacral lymph nodes. Dictated by: Jackie Kelly M.D. on 12/23/2019 at 11:33 Approved by: Jackie Kelly M.D. on 12/23/2019 at 12:17
== END ==
PROVIDERS: Referring Provider Internal Medicine; Visit Provider Internal Medicine
DX: C20 Malignant neoplasm of rectum (principal); R59.0 Localized enlarged lymph nodes
CPT/HCPCS: 72196; 72197

== ENCOUNTER → 2019-12-23 10:33 | Outpatient (CLI) | payer OTHER, SELFPAY | PROVIDERS: Referring Provider Internal Medicine; Visit Provider Internal Medicine | DX: C20 Malignant neoplasm of rectum (principal); Z53.9 Procedure and treatment not carried out, unspecified reason | CPT/HCPCS: 72197 ==

== ENCOUNTER → 2020-08-09 16:39 | Outpatient (CLI) | payer OTHER, SELFPAY ==
--- NOTE | 2020-08-09 16:45 | DI.RAD.S_ITS ---
PROCEDURE: XR ABDOMEN 1V INDICATIONS: RECTAL CANCER TECHNIQUE: The patient was given a Sitzmark capsule by the histotechnologist on the date of 08/07/2020 afternoon. Patient returned 08/09/2020 afternoon. Supine 1 view abdomen radiograph acquired. COMPARISON: [facility], MR, MR PELVIS WO/W CON, 12/21/2019, 8:00. [facility], CT, CT ABDOMEN PELVIS W CON, 12/15/2019, 20:26. FINDINGS: Surgical changes and devices: None. Bowel: There are 14 out of 24 Sitzmark rings remaining within the transverse- distal colon. Fecal residue is seen in the colon. No dilated loops of bowel seen. Paucity of small bowel gas. Soft tissues: No suspicious abdominal calcifications. Visualized solid organ contours appear normal in size. Bones: No suspicious bony lesions. IMPRESSION: Roughly half of the Sitzmark rings remain in the transverse-distal colon on the 3rd day post ingestion. Dictated by: Addy Ramos M.D. on 08/10/2020 at 9:14 Approved by: Addy Ramos M.D. on 08/10/2020 at 9:20
== END ==
PROVIDERS: Referring Provider Surgery; Visit Provider Surgery
DX: C20 Malignant neoplasm of rectum (principal)
CPT/HCPCS: 74018

== ENCOUNTER → 2020-08-11 11:52 | Outpatient (CLI) | payer OTHER, SELFPAY ==
--- NOTE | 2020-08-11 11:58 | DI.RAD.S_ITS ---
PROCEDURE: XR ABDOMEN 1V INDICATIONS: RECTAL CANCER TECHNIQUE: The patient was given a Sitzmark capsule by the resident physician in radiology on the date of 08/07/20 and was instructed to swallow the capsule on the day it was given. Patient returned 3 and 5 days later for followup imaging. Supine 1 view abdomen radiograph acquired. COMPARISON: [facility], , XR ABDOMEN 1V, 08/09/2020, 16:55. FINDINGS: Surgical changes and devices: None. Bowel: There are 4 out of 24 Sitzmark rings remaining within the colon 3 within the descending colon and 1 within the transverse colon area. This is considered a normal study, as a result. Bowel gas pattern is normal. Soft tissues: No suspicious abdominal calcifications. Visualized solid organ contours appear normal in size. Bones: No suspicious bony lesions. IMPRESSION: At day 5 of the procedure only for remaining markers are present, normal colon transit study. Dictated by: Lm Loja M.D. on 08/11/2020 at 12:24 Approved by: Lm Loja M.D. on 08/11/2020 at 12:32
== END ==
PROVIDERS: PCP Family Medicine; Referring Provider Surgery; Visit Provider Surgery
DX: C20 Malignant neoplasm of rectum (principal)
CPT/HCPCS: 74018

== ENCOUNTER → 2020-08-23 09:46 | Outpatient (CLI) | payer OTHER, SELFPAY ==
[2020-08-23] MEDS: COVID-19 VACC, Ad26(JANSSEN)/PF 0.5 ML IM (10:00)
== END ==
PROVIDERS: PCP Family Medicine; Visit Provider Internal Medicine
DX: Z23 Encounter for immunization (principal)
CPT/HCPCS: 0031A; 91303

== ENCOUNTER → 2023-08-01 13:09 | Outpatient (CLI) | payer OTHER, SELFPAY ==
--- NOTE | 2023-08-01 13:10 | DI.MRI.S_ITS ---
PROCEDURE: MR ANKLE LT WO CON INDICATIONS: PAIN IN LEFT FOOT TECHNIQUE: Noncontrast sagittal T1 spin echo and T2 fast spin echo with fat saturation, axial proton density fast spin echo and T2 fast spin echo with fat saturation, coronal T1 spin echo and T2 fast spin echo with fat saturation through the ankle/hindfoot. COMPARISON: None. FINDINGS: Image quality: Diagnostic Tendons: The flexor tendon is unremarkable. Mild tenosynovitis of the peroneal tendons, without tear. The extensor tendons are unremarkable. The distal Achilles tendon is unremarkable. Ligaments: The anterior tibiofibular, posterior tibiofibular ligament are intact. Mild thickening of the anterior talofibular ligament, representing prior sprain. The posterior talofibular ligament is intact. The calcaneofibular ligament is intact. Prior sprain of the deep portion of the deltoid ligament. Sinus tarsi: No fibrosis. Small amount of fluid within the Gruberi bursa. Plantar fascia: Thickening of the central cord, concerning for plantar fasciitis. There is mild marrow edema of the plantar calcaneus at the insertion of the plantar fascia, likely reactive. Muscles: Unremarkable Bones: Small subchondral cystic changes at the medial malleolus, reactive. No acute fracture. No osteochondral lesion of the talus dome. No significant tibiotalar effusion. Small amount of fluid within the posterior subtalar recess. IMPRESSION: 1. Mild tenosynovitis of the peroneal tendons, without tear. 2. Prior sprain of the medial and the lateral ankle ligament as described above. 3. Findings suggestive of plantar fasciitis with reactive marrow edema of the plantar calcaneus. Dictated by: Lesly Carrillo M.D. on 08/01/2023 at 20:51 Approved by: Lesly Carrillo M.D. on 08/01/2023 at 20:57
== END ==
PROVIDERS: PCP Family Medicine; Referring Provider Podiatrist; Visit Provider Podiatrist
DX: M76.72 Peroneal tendinitis, left leg (principal); M79.672 Pain in left foot; R26.2 Difficulty in walking, not elsewhere classified; M65.9 Synovitis and tenosynovitis, unspecified
CPT/HCPCS: 73721

== ENCOUNTER 2024-09-08 12:47 | Emergency (ER) | payer OTHER, SELFPAY ==
[2024-09-08] VITALS (10 sets, daily range): BP systolic 106–120; BP diastolic 58–67; PULSE 71–94; RESP 16; TEMP 36.8; O2SAT 95–100; BMI 26.6
[2024-09-08 13:47] LABS: Add Manual Diff / Slide Review NO; Basophils Absolute Auto 0 /uL (0-100); Basophils Percent Auto 0.3 % (0-2); Eosinophils Absolute Auto 100 /uL (0-450); Eosinophils Percent Auto 1.6 % (2-4); Hematocrit 36.5 % (36-46); Hemoglobin 12.7 g/dL (12.0-16.0); Lymphocytes Absolute Auto 1800 /uL (1100-4500); Lymphocytes Percent Auto 26.5 % (25-40); Mean Corpuscular HGB Conc 34.7 % (30-36); Mean Corpuscular Hemoglobin 29.9 PG (26-34); Mean Corpuscular Volume 86.3 fL (80-100); Monocytes Absolute Auto 600 /uL (0-900); Monocytes Percent Auto 8.3 % (3-14); Neutrophils Absolute Auto 4200 /uL (1500-7000); Neutrophils Percent Auto 63.3 % (50-75); Platelet Count 293 X10^3/uL (150-400); Red Blood Cell Count 4.23 X10^6/uL (4.0-5.2); White Blood Cell Count 6.7 X10^3/uL (4.5-11.0)
[2024-09-08 13:58] LABS: Alanine Aminotransferase 26 IU/L (<35); Albumin 4.2 g/dL (3.5-5.0); Albumin Globulin Ratio 1.2 (1.0-2.8); Alkaline Phosphatase 49 U/L (38-126); Aspartate Aminotransferase 48 IU/L (14-36); BUN Creatinine Ratio 13.6 (6-22); Bilirubin Total 0.8 mg/dL (0.2-1.3); Blood Urea Nitrogen 12 mg/dL (7-17); Calcium 9.3 mg/dL (8.4-10.2); Carbon Dioxide 26 mmol/L (22-32); Chloride 97 mmol/L (98-107); Estimated Glomerular Filt Rate > 60 mL/min (>60); Globulin 3.5 g/dL (1.7-4.1); Glucose 128 mg/dL (70-99); HEMOLYSIS 143 (0-50); Lipase 63 U/L (23-300); Potassium 3.8 mmol/L (3.4-5.1); Sodium 133 mmol/L (137-145); Total Protein 7.7 g/dL (6.3-8.2)
--- NOTE | 2024-09-08 15:35 | ED_ITS ---
HPI - Nausea/Vomiting/Diarrhea General Chief complaint: Nausea/Vomiting/Diarrhea Stated complaint: Dehydrated x 2days Time Seen by Provider: 09/08/24 15:34 Source: patient Mode of arrival: Ambulatory History of Present Illness HPI Narrative: Ms. Tamayo is a very pleasant 54-year-old female with a past medical history of rectal cancer s/p surgical removal, ulcerative colitis on Humira since March of this year who presents to the emergency department for dehydration x2 days. Patient states since going down to 40 mg of Humira in May she has been struggling with 12-20 episodes of liquid diarrhea every day. She has been hospitalized 5 times this year for dehydration due to this diarrhea. She did have C diff in the past. States that about 2 or 3 days ago she started feeling extremely weak and she could tell that her blood pressure was starting to get low because of the dehydration. She is having brown/redness diarrhea in the morning and it is clear by the end of the day. She has some discomfort in the left lower quadrant of her abdomen. She denies fevers, chills, chest pain, nausea, vomiting, dysuria. Her GI doctor is in [place]. Related Data Home Medications ?Medication ?Instructions ?Recorded ?Confirmed fluoxetine 10 mg capsule 10 mg PO DAILY 12/15/1911/29 gabapentin 300 mg capsule 300 mg PO DAILY 12/15/19 hydrochlorothiazide 12.5 mg tablet 12.5 mg PO QAM 11/2912/15/19 Previous Rx's ?Medication ?Instructions ?Recorded cephalexin 500 mg capsule 500 mg PO BID 1 week #14 cap s 09/08/24 Allergies Allergy/AdvReac Type Severity Reaction Status Date / Time amoxicillin (From AUGMENTIN) Allergy Unknown Verified 09/08/24 13:06 clavulanic acid (From Allergy Unknown Verified 09/08/24 13:06 AUGMENTIN) lisinopril Allergy Verified 09/08/24 13:06 Review of Systems Review of Systems ROS Unobtainable: All systems reviewed & are unremarkable except as noted in HPI and below Patient History Medical History (Updated 09/08/24 @ 18:23 by Caroline Robert PA-C) Foot contusion Social History household members: spouse Smoking Status: Never smoker alcohol intake: never Smoking Status: Never smoker alcohol intake frequency: holidays/special occasions only Exam Narrative Exam Narrative: GENERAL: 54 year old patient appears stated age. Well-developed patient, in no acute distress. HEAD: Atraumatic. Normocephalic. NECK: Trachea midline. Cervical ROM intact. CARDIOVASCULAR: Regular rate and rhythm. RESPIRATORY: ?Nonlabored respirations. ?Speaking in clear, full sentences. ?Clear to auscultation. Breath sounds equal bilaterally. No wheezes, rales, or rhonchi. ? GASTROINTESTINAL: Abdomen soft, non-tender, nondistended. Bowel sounds present. No rebound or guarding. Patient does have subjective pain in the left lower quadrant. EXTREMITIES: No edema or joint tenderness. NEURO: AOx3. ?Clear speech. ?Moves all 4 extremities appropriately. SKIN: No rash or erythema of visible areas Initial Vital Signs Initial Vital Signs: Vital Signs Temperature 98.2 F 09/08/24 13:08 Pulse Rate 94 H 09/08/24 13:08 Respiratory Rate 16 09/08/24 13:08 Blood Pressure 106/60 09/08/24 13:08 Pulse Oximetry 95 09/08/24 13:08 Oxygen Delivery Method Room Air 09/08/24 13:08 Course Orders Ordered: Discontinued Medications Cephalexin HCl (Cephalexin 250 Mg Capsule) 500 mg PO NOW ONE Stop: 09/08/24 18:23 Last Admin: 09/08/24 18:44 Dose: 500 mg Documented By: BRISA Sodium Chloride (Normal Saline 0.9%) 1,000 mls @ 1,000 mls/hr IV BOLUS ONE Stop: 09/08/24 17:13 Last Infusion: 09/08/24 18:00 Dose: Infused Documented By: Admin: 09/08/24 16:31 Dose: 1,000 mls/hr Documented By: MERVIN Sodium Chloride (Normal Saline 0.9%) 1,000 mls @ 1,000 mls/hr IV BOLUS ONE Stop: 09/08/24 18:43 Last Infusion: 09/08/24 19:07 Dose: Infused Documented By: Admin: 09/08/24 18:21 Dose: 1,000 mls/hr Documented By: MERVIN Ondansetron HCl (Ondansetron 4 Mg/2 Ml Inj) 4 mg IV NOW PRN PRN Reason: Nausea And Vomiting Ondansetron HCl (Ondansetron 4 Mg Odt) 4 mg PO NOW PRN PRN Reason: Nausea And Vomiting Ondansetron HCl (Ondansetron 4 Mg/2 Ml Inj) 4 mg IV NOW PRN PRN Reason: Nausea And Vomiting Vital Signs Vital signs: Vital Signs - 8 hr 09/08/24 13:08 09/08/24 15:40 09/08/24 15:40 Temperature 98.2 F Pulse Rate 94 H 71 Respiratory Rate 16 Blood Pressure 106/60 120/67 Pulse Oximetry 95 97 Oxygen Delivery Method Room Air 09/08/24 16:00 09/08/24 16:30 09/08/24 17:00 Temperature Pulse Rate 72 74 73 Respiratory Rate Blood Pressure Pulse Oximetry 98 99 99 Oxygen Delivery Method 09/08/24 17:30 09/08/24 18:00 09/08/24 18:31 Temperature Pulse Rate 72 73 76 Respiratory Rate Blood Pressure Pulse Oximetry 99 100 98 Oxygen Delivery Method 09/08/24 19:00 09/08/24 19:01 09/08/24 19:01 Temperature Pulse Rate 75 79 Respiratory Rate Blood Pressure 111/58 L Pulse Oximetry 100 100 Oxygen Delivery Method MDM - Nausea/Vomiting/Diarrhea Medical Records Attestation: I reviewed the patient's medical records. Lab Data 09/08/24 13:30 09/08/24 13:30 Labs: Lab Results 09/08/24 09/08/24 Range/Units 13:30 16:17 WBC 6.7 (4.5-11.0) X10^3/uL RBC 4.23 (4.0-5.2) X10^6/uL Hgb 12.7 (12.0-16.0) g/dL Hct 36.5 (36-46) % MCV 86.3 (80-100) fL MCH 29.9 (26-34) PG MCHC 34.7 (30-36) % RDW 13.0 (11.6-14.8) % Plt Count 293 (150-400) X10^3/uL Neut % (Auto) 63.3 (50-75) % Lymph % (Auto) 26.5 (25-40) % [place] % (Auto) 8.3 (3-14) % Eos % (Auto) 1.6 L (2-4) % Baso % (Auto) 0.3 (0-2) % Neut # (Auto) 4200 (9681-0744) /uL Lymph # (Auto) 1800 (0353-9497) /uL [place] # (Auto) 600 (0-900) /uL Eos # (Auto) 100 (0-450) /uL Baso # (Auto) 0 (0-100) /uL Sodium 133 L (137-145) mmol/L Potassium 3.8 (3.4-5.1) mmol/L Chloride 97 L (98-107) mmol/L Carbon Dioxide 26 (22-32) mmol/L BUN 12 (7-17) mg/dL Creatinine 0.88 (0.52-1.04) mg/dL Estimated GFR > 60 (>60) mL/min BUN/Creatinine Ratio 13.6 (6-22) Glucose 128 H (70-99) mg/dL Calcium 9.3 (8.4-10.2) mg/dL Total Bilirubin 0.8 (0.2-1.3) mg/dL AST 48 H (14-36) IU/L ALT 26 (<35) IU/L Alkaline Phosphatase 49 (38-126) U/L Total Protein 7.7 (6.3-8.2) g/dL Albumin 4.2 (3.5-5.0) g/dL Globulin 3.5 (1.7-4.1) g/dL Albumin/Globulin Ratio 1.2 (1.0-2.8) Lipase 63 (23-300) U/L Urine RBC 0-1/hpf (0-5/HPF) Urine WBC 5-10/hpf H (0-5/HPF) Ur Squamous Epith Cells 5-10 /hpf H (0-5/HPF) Urine Bacteria Many (>30) H (None) Vol Urine Centrifuged 10ml (spun) Stl C. cayetanensis PCR Not detected (Not Detect) Stool Rotavirus (PCR) Not detected (Not Detect) Stool Adenovirus (PCR) Not detected (Not Detect) Stool Astrovirus (PCR) Not detected (Not Detect) Stool Cryptosporidium PCR Not detected (Not Detect) Stl E.coli Shiga Tox PCR Not detected (Not Detect) St Sh/Enteroin Ecoli PCR Not detected (Not Detect) Stl Enterotoxigenic E PCR Not detected (Not Detect) Stool EPEC (PCR) Not detected (Not Detect) Stl E. histolytica PCR Not detected (Not Detect) Stool Giardia Lamblia PCR Not detected (Not Detect) Stool Sapovirus (PCR) Not detected (Not Detect) Stl P. shigelloides PCR Not detected (Not Detect) St Y.enterocolitica PCR Not detected (Not Detect) Stool Vibrio (PCR) Not detected (Not Detect) Stl Vibrio cholerae PCR Not detected (Not Detect) Stl Enteroaggr Ecoli PCR Not detected (Not Detect) Stl Norovirus GI/GII PCR Not detected (Not Detect) Campylobacter (PCR) Not detected (Not Detect) C. difficile Tox (PCR) Not detected (Not Detect) Salmonella (PCR) Not detected (Not Detect) Urine Dip Bedside Urine Glucose Negative Bedside Urine Bilirubin - Negative Bedside Urine Ketone - Negative Urine Specific Dennis 1.010 Bedside Urine Occult Blood +++ Bedside Urine pH 6.0 Bedside Urine Protein - Negative Bedside Urine Urobilinogen - Negative Bedside Urine Nitrite - Negative Bedside Urine Leukocytes +++ [address] scan - abdomen/pelvis: Radiologist's Impression: PROCEDURE: CT ABDOMEN PELVIS W CON INDICATIONS: LLQ pain diarrhea; UC; hx rectal ca TECHNIQUE: After the administration of intravenous contrast, axial sections acquired from the lung bases to the pubic symphysis. Coronal and sagittal reformats were performed. For radiation dose reduction, the following was used: automated exposure control, adjustment of mA and/or kV according to patient size. COMPARISON: [facility], CT, CT ABDOMEN PELVIS W CON, 12/15/2019, 20:26. FINDINGS: Image quality: Diagnostic. Lower Chest: No significant findings. Bilateral breast implants are intact. ABDOMEN: Liver: No solid mass. Likely simple cysts are again seen in right hepatic lobe increased in size compared to 2020 study. Gallbladder: Contracted gallbladder. Small calcified stone is seen. No gallbladder wall thickening. Biliary ducts: No biliary dilation. Pancreas: No ductal dilation. Spleen: Size is within normal limits. Adrenal Glands: No adrenal nodules. Kidneys and Ureters: No hydronephrosis. No solid mass. No complex renal cystic lesion which requires follow up. Stomach and Bowel: There is no bowel obstruction. Postsurgical changes are noted in midline lower abdomen from prior partial bowel resection with intact appearing surgical anastomosis. Mild small bowel wall thickening and enhancement is seen in mid to lower abdomen likely involving proximal to mid small bowel loops. Mild fecal stasis in the colon is seen. No abnormal colonic wall thickening. No abscess collection. Peritoneum: No abnormal intraperitoneal fluid. No free air. Ventral Wall: No significant ventral hernia. Abdominal Nodes: No retroperitoneal or mesenteric adenopathy by size criteria. Vessels: Aorta and inferior vena cava are normal in size. PELVIS: Pelvic Organs: Unremarkable. Bladder: No bladder wall thickening, accounting for underdistention. Pelvic Nodes: No enlarged lymph nodes. Miscellaneous: No inguinal hernias are seen. Bones: No aggressive osseous abnormality. IMPRESSION: 1. Postsurgical changes in lower abdomen with intact surgical anastomosis. Small bowel wall thickening as described above concerning for mild infectious or inflammatory enteritis. Mild constipation. No colonic wall thickening. No free fluid or free air. No abscess collection. 2. Cholelithiasis without CT evidence of acute cholecystitis. 3. Interval increase in size of simple appearing hepatic cysts. 4. No obstructing renal stones or hydronephrosis. Dictated by: Isaiah Juarez M.D. on 09/08/2024 at 17:12 Approved by: Isaiah Juarez M.D. on 09/08/2024 at 17:17 [facility] Narrative Medical decision making narrative: 54-year-old female with a past medical history of rectal cancer s/p surgical removal, ulcerative colitis on [facility] since March of this year who presents to the emergency department for dehydration x2 days. Differential diagnosis includes but is not limited to dehydration, electrolyte abnormality, ulcerative colitis flare, infectious diarrhea, etc. On exam patient is in no acute distress, nontoxic appearing, vital signs reveal heart rate of 94, blood pressure 106/60, normal respiratory rate temperature and oxygenation saturation. Her abdomen is soft and nontender however she does have subjective left lower quadrant pain, is having multiple liquid episodes of diarrhea and is starting to feel very weak. We will treat with IV fluids, obtain CT abdomen pelvis, abdominal labs, we will also obtain GI panel. White blood cell count normal 6.7, hemoglobin 12.7, hematocrit 36.5. Sodium slightly decreased at 133, normal potassium 3.8, chloride 97. BUN 12 creatinine 0.88. Glucose 128. Normal lipase 63. Urine reveals many bacteria, 5-10 WBCs - urine was sent for culture. GI panel negative. CT reveals small bowel wall thickening concerning for mild infectious or inflammatory enteritis. Mild constipation. No colonic wall thickening, no free fluid or free air, no abscess. GI panel negative. Patient feels much better after ED treatment. At this time symptoms are not consistent with an ulcerative colitis flare requiring emergent steroids and patient is not interested in any steroids. We will prescribe Keflex b.i.d. x5 days for UTI while urine culture is pending. Advised calling her GI doctor and PCP for follow up. Patient and spouse verbalized understanding of all information and are agreeable to the plan, she is stable for discharge home all questions answered. Discharge Plan Departure Patient Disposition: Home Clinical Impression: Enteritis, Hyponatremia Diarrhea Qualifiers: Diarrhea type: unspecified type Qualified Code(s): R19.7 - Diarrhea, unspecified UTI (urinary tract infection) Qualifiers: Urinary tract infection type: site unspecified Hematuria presence: without hematuria Qualified Code(s): N39.0 - Urinary tract infection, site not specified Instructions: DI for Dehydration -- Adult Activity Restrictions/Additional Instructions: Dear Korin Roni, Thank you for coming to the emergency department. Today you were evaluated for diarrhea and dehydration. Your CT scan did reveal some mild inflammation of the small bowel, mild constipation. Your urine test did reveal signs of a urinary tract infection as well. Your GI panel was negative for any sources of infectious diarrhea. Please rest, eat a liquid/soft/bland diet to reduce any abdominal pain, complete full course of antibiotics, call and speak with your GI doctor to inform them of your ER visit to discuss further management. Please follow up with an [facility] primary care physician, who can refer you to [facility] ([phone]). Please rest, hydrate, follow up with the primary care doctor. Return to the emergency department if you develop any new or worsening symptoms such as fever, severe pain or other concerns. Please follow up with your primary care doctor within the next 2-3 days for ER follow-up. (If you do not have a PCP you can call [phone]. ?to schedule an appointment with an [facility] Primary Care Provider) IF YOU DEVELOP ANY NEW OR WORSENING SYMPTOMS, RETURN TO THE ER! Please read the attached instructions, they highlight more specific treatments and interventions for you at home. Thank you for letting me participate in your care, Caroline Robert PA-C Prescriptions: New cephalexin 500 mg capsule 500 mg PO BID 7 Days Qty: 14 0RF No Action fluoxetine 10 mg capsule 10 mg PO DAILY hydrochlorothiazide 12.5 mg tablet 12.5 mg PO QAM gabapentin 300 mg Capsule 300 mg PO DAILY Referrals: Willow Kurtz [Primary Care Provider, Family Practice] Stand Alone Forms: Patient Portal/API
--- NOTE | 2024-09-08 16:14 | DI.CT.S_ITS ---
PROCEDURE: CT ABDOMEN PELVIS W CON INDICATIONS: LLQ pain diarrhea; UC; hx rectal ca TECHNIQUE: After the administration of intravenous contrast, axial sections acquired from the lung bases to the pubic symphysis. Coronal and sagittal reformats were performed. For radiation dose reduction, the following was used: automated exposure control, adjustment of mA and/or kV according to patient size. COMPARISON: [facility], CT, CT ABDOMEN PELVIS W CON, 12/15/2019, 20:26. FINDINGS: Image quality: Diagnostic. Lower Chest: No significant findings. Bilateral breast implants are intact. ABDOMEN: Liver: No solid mass. Likely simple cysts are again seen in right hepatic lobe increased in size compared to 2020 study. Gallbladder: Contracted gallbladder. Small calcified stone is seen. No gallbladder wall thickening. Biliary ducts: No biliary dilation. Pancreas: No ductal dilation. Spleen: Size is within normal limits. Adrenal Glands: No adrenal nodules. Kidneys and Ureters: No hydronephrosis. No solid mass. No complex renal cystic lesion which requires follow up. Stomach and Bowel: There is no bowel obstruction. Postsurgical changes are noted in midline lower abdomen from prior partial bowel resection with intact appearing surgical anastomosis. Mild small bowel wall thickening and enhancement is seen in mid to lower abdomen likely involving proximal to mid small bowel loops. Mild fecal stasis in the colon is seen. No abnormal colonic wall thickening. No abscess collection. Peritoneum: No abnormal intraperitoneal fluid. No free air. Ventral Wall: No significant ventral hernia. Abdominal Nodes: No retroperitoneal or mesenteric adenopathy by size criteria. Vessels: Aorta and inferior vena cava are normal in size. PELVIS: Pelvic Organs: Unremarkable. Bladder: No bladder wall thickening, accounting for underdistention. Pelvic Nodes: No enlarged lymph nodes. Miscellaneous: No inguinal hernias are seen. Bones: No aggressive osseous abnormality. IMPRESSION: 1. Postsurgical changes in lower abdomen with intact surgical anastomosis. Small bowel wall thickening as described above concerning for mild infectious or inflammatory enteritis. Mild constipation. No colonic wall thickening. No free fluid or free air. No abscess collection. 2. Cholelithiasis without CT evidence of acute cholecystitis. 3. Interval increase in size of simple appearing hepatic cysts. 4. No obstructing renal stones or hydronephrosis. Dictated by: Isaiah Juarez M.D. on 09/08/2024 at 17:12 Approved by: Isaiah Juarez M.D. on 09/08/2024 at 17:17
[2024-09-08] MEDS: SODIUM CHLORIDE 0.9% 1,000 ML 1000 ML IV ×2 (16:31→18:21)
[2024-09-08 16:43] LABS: RBC Urine 0-1/HPF (0-5/HPF); Urine Volume 10mL (spun); WBC Urine 5-10/HPF (0-5/HPF)
[2024-09-08 16:44] LABS: Bacteria Urine Many (>30); Squamous Epithelial Cell Urine 5-10 /HPF (0-5/HPF)
--- NOTE | 2024-09-08 17:41 | PC.NURSE ---
late entry 1315 patient declined EKG.
[2024-09-08 17:46] LABS: Adenovirus F 40/41 Not Detected (Not Detect); Astrovirus Not Detected (Not Detect); Campylobacter Not Detected (Not Detect); Clostridium difficile toxin AB Not Detected (Not Detect); Cryptosporidium Not Detected (Not Detect); Cyclospora cayetanensis Not Detected (Not Detect); Entamoeba histolytica Not Detected (Not Detect); Enteroaggregative E.coli Not Detected (Not Detect); Enteropathogenic E.coli Not Detected (Not Detect); Enterotoxigenic E.coli It/st Not Detected (Not Detect); Giardia lamblia Not Detected (Not Detect); Norovirus GI/GII Not Detected (Not Detect); Plesiomonsa shigelloides Not Detected (Not Detect); Rotavirus A Not Detected (Not Detect); Salmonella Not Detected (Not Detect); Sapovirus Not Detected (Not Detect); Shiga-like toxin-prod E.coli Not Detected (Not Detect); Shigella/Enteroinvasive E.coli Not Detected (Not Detect); Vibrio Not Detected (Not Detect); Vibrio cholerae Not Detected (Not Detect); Yersinia enterocolitica Not Detected (Not Detect)
[2024-09-08] MEDS: cephALEXin 250 MG CAPSULE 500 MG PO (18:44)
== END 2024-09-08 19:13 | disposition home or self-care (01) ==
PROVIDERS: Emergency Medicine; Emergency Provider Physician Assistant; PCP Family Medicine
DX: K52.9 Noninfective gastroenteritis and colitis, unspecified (principal); E87.1 Hypo-osmolality and hyponatremia; N39.0 Urinary tract infection, site not specified; R10.32 Left lower quadrant pain
CPT/HCPCS: 36415; 74177; 80053; 81003; 81015; 83690; 85025; 87086; 87507; 96360; 96361; 99284; Q9967